=== PATIENT | female | born 1960 | race Caucasian/White ===

== ENCOUNTER 2017-04-26 17:13 | Inpatient (IN) | payer BC, OTHER ==
[~2017-04-26] VITALS: Ht 162.6 cm; Wt 65.2 kg
[2017-04-26] VITALS (9 sets, daily range): BP systolic 155–199; BP diastolic 77–103; PULSE 73–86; RESP 18–20; TEMP 96–97.6; O2SAT 94–98
[~2017-04-26 17:13] MED LIST: ASPI81 PO; ATOR10 PO; LANTUSP SQ; LOSA50 PO; METF-324 PO; METO25 PO; TICA90 PO
[2017-04-26] MEDS ORDERED: SODIUM CHLORIDE 0.9% FLUSH 10 ML FLUSH IVF PRN (17:30)
[2017-04-26] MEDS ORDERED: SODIUM CHLOR 0.9% 1000 ML INJ 1,000 ML IV ONE (17:30)
--- NOTE | 2017-04-26 17:38 | PD ---
HPI Chief Complaint: double vision Time Seen by Provider: 17:23 Travel History International Travel<30 days: No Contact w/Intl Traveler<30days: No History of Present Illness HPI Patient is a 57-year-old female with history of coronary artery disease, hypertension, hyperlipidemia, hx of left sided kidney cancer with partial resection, insulin-dependent diabetes with history of cardiac stent x 1 presents to ER with c/o of dizzyness. Patient reports that around 1:30 PM this afternoon, she was at her desk at home and began to have double vision. She reports that if she closes her right eye, she sees normally and her left eye, reports that if she closed her left eye, she sees normally in her right eye. Denies any pain to eyes. Patient reports that this has never happened to her in the past, denies any trauma to head/neck. Denies fall. Reports mild nausea with no vomiting. Denies chest pain/sob. Denies fever/chills. Denies cough/ congestion PFSH Past Medical History Arthritis: No Asthma: No Autoimmune Disease: No Blood Disorders: No Anxiety: Yes Heart Rhythm Problems: No Cancer: Yes (LEFT KIDNEY) Cardiovascular Problems: No High Cholesterol: Yes Chemotherapy: No Congestive Heart Failure: No COPD: No Cerebrovascular Accident: Yes (hospitalized 09/02 for tia vs migraine) Diabetes: Yes Diminished Hearing: No Endocrine: No GERD: No Genitourinary: No Headaches: Yes Hepatitis: No Hiatal Hernia: No Hypertension: Yes Immune Disorder: No Kidney Stones: No Musculoskeletal: No Neurologic: No Psychiatric: No Reproductive: No Respiratory: Yes (pneumonia) Migraines: No Myocardial Infarction: No Pneumonia: Yes Radiation Therapy: No Renal Failure: No Seizures: No Sleep Apnea: No Thyroid Disease: No Ulcer: No Past Surgical History Abdominal Surgery: Yes AICD: No Appendectomy: No Cardiac Surgery: No Section: Yes (1991) Cholecystectomy: Yes Ear Surgery: No Endocrine Surgery: No Eye Surgery: No Genitourinary Surgery: Yes (LEFT PARTIAL NEPHRECTOMY) Gynecologic Surgery: Yes Oral Surgery: No Pacemaker: No Thoracic Surgery: No Other Surgery: Yes Social History Alcohol Use: No Tobacco Use: Yes (.) Substance Use: No Allergies-Medications (Allergen,Severity, Reaction): Coded Allergies: Dilaudid (Unverified Allergy, Severe, RESPIRATORY DISTRESS, 04/26/17) Reported Meds & Prescriptions Reported Meds & Active Scripts Active Reported Aspirin 81 Mg Chew 81 Mg CHEW DAILY Losartan (Losartan Potassium) 100 Mg Tab 100 Mg PO DAILY Metoprolol Tartrate 25 Mg Tab 25 Mg PO BID Metformin (Metformin HCl) 500 Mg Tab 500 Mg PO DAILY With a meal Lantus Inj (Insulin Glargine) 1,000 Unit/10 Ml Vial 26 Units SQ HS Review of Systems General / Constitutional: No: Fever Eyes: No: Visual changes HENT: No: Headaches Cardiovascular: No: Chest Pain or Discomfort, Palpitations, Irregular Rhythm, Tachycardia Respiratory: No: Shortness of Breath Gastrointestinal: No: Abdominal Pain Genitourinary: No: Dysuria Musculoskeletal: No: Pain Skin: No Rash Neurologic: Positive: Headache, Other (double vision), No: Weakness Psychiatric: No: Depression Endocrine: No: Polydipsia Hematologic/Lymphatic: No: Easy Bruising Physical Exam Narrative GENERAL: NAD SKIN: Focused skin assessment warm/dry. HEAD: Atraumatic. Normocephalic. EYES: Pupils equal and round. No scleral icterus. No injection or drainage. ENT: No nasal bleeding or discharge. Mucous membranes pink and moist. NECK: Trachea midline. No JVD. CARDIOVASCULAR: Regular rate and rhythm. No murmur appreciated. RESPIRATORY: No accessory muscle use. Clear to auscultation. Breath sounds equal bilaterally. GASTROINTESTINAL: Abdomen soft, non-tender, nondistended. Hepatic and splenic margins not palpable. MUSCULOSKELETAL: No obvious deformities. No clubbing. No cyanosis. No edema. NEUROLOGICAL: Awake and alert. No obvious cranial nerve deficits. Motor grossly within normal limits. Normal speech. CN 2-12 grossly intact with no neurological deficits PSYCHIATRIC: Appropriate mood and affect; insight and judgment normal. Data Data Last Documented VS Vital Signs Date Time Temp Pulse Resp B/P Pulse Ox O2 Delivery O2 Flow Rate FiO2 04/26/17 17:20 97.6 79 18 192/95 94 04/26/17 17:15 Room Air Orders Complete Blood Count With Diff (04/26/17 17:30) Comprehensive Metabolic Panel (04/26/17 17:30) Prothrombin Time / Inr (Pt) (04/26/17 17:30) Act Partial Throm Time (Ptt) (04/26/17 17:30) Ct Brain W/O Iv Contrast(Rout) (04/26/17 17:30) Ecg Monitoring (04/26/17 17:30) Iv Access Insert/Monitor (04/26/17 17:30) Oximetry (04/26/17 17:30) Sodium Chloride 0.9% Flush (Ns Flush) (04/26/17 17:30) Sodium Chlor 0.9% 1000 Ml Inj (Ns 1000 M (04/26/17 17:30) Hydralazine Inj (Apresoline Inj) (04/26/17 18:30) Electrocardiogram (04/26/17 ) Aspirin Chew (Aspirin Chew) (04/27/17 09:00) Losartan (Cozaar) (04/27/17 09:00) Metoprolol Tartrate (Lopressor) (04/26/17 21:00) Place In Observation (04/26/17 ) Vital Signs (Adult) Q4H (04/26/17 18:39) Neuro Checks Q4H (04/26/17 18:39) Activity Oob With Assistance (04/26/17 18:39) Bedside Glucose ERNIE.AC&HS (04/26/17 18:39) Diet 1800 Ada Cons Carb (04/26/17 Dinner) Sodium Chlor 0.9% 1000 Ml Inj (Ns 1000 M (04/26/17 18:39) Sodium Chloride 0.9% Flush (Ns Flush) (04/26/17 18:45) Sodium Chloride 0.9% Flush (Ns Flush) (04/26/17 21:00) Acetaminophen (Tylenol) (04/26/17 18:45) Comprehensive Metabolic Panel (04/27/17 06:00) Complete Blood Count With Diff (04/27/17 06:00) Case Management Consult (04/26/17 18:39) Scd Bilateral/Knee High ERNIE.BID (04/26/17 18:39) Idris Bilateral/Knee High ERNIE.QSHIFT (04/26/17 18:39) Acetaminophen (Tylenol) (04/26/17 18:45) Naloxone Inj (Narcan Inj) (04/26/17 18:45) Docusate Sodium-Senna (Mable-Colace) (04/26/17 21:00) Insulin Aspart Supplemtl Scale (Novolog (04/26/17 21:00) Admit Order (Ed Use Only) (04/26/17 18:48) Aspirin Chew (Aspirin Chew) (04/26/17 19:00) Labs Laboratory Tests Test 04/26/17 17:47 White Blood Count 9.1 TH/MM3 Red Blood Count 5.28 MIL/MM3 Hemoglobin 15.2 GM/DL Hematocrit 45.3 % Mean Corpuscular Volume 85.8 FL Mean Corpuscular Hemoglobin 28.9 PG Mean Corpuscular Hemoglobin 33.7 % Concent Red Cell Distribution Width 13.7 % Platelet Count 206 TH/MM3 Mean Platelet Volume 10.1 FL Neutrophils (%) (Auto) 59.2 % Lymphocytes (%) (Auto) 31.7 % Monocytes (%) (Auto) 6.4 % Eosinophils (%) (Auto) 1.9 % Basophils (%) (Auto) 0.8 % Neutrophils # (Auto) 5.2 TH/MM3 Lymphocytes # (Auto) 2.9 TH/MM3 Monocytes # (Auto) 0.6 TH/MM3 Eosinophils # (Auto) 0.2 TH/MM3 Basophils # (Auto) 0.1 TH/MM3 CBC Comment DIFF FINAL Differential Comment Prothrombin Time 10.0 SEC Prothromb Time International 0.9 RATIO Ratio Activated Partial 27.8 SEC Thromboplast Time Sodium Level 143 MEQ/L Potassium Level 3.9 MEQ/L Chloride Level 110 MEQ/L Carbon Dioxide Level 25.7 MEQ/L Anion Gap 7 MEQ/L Blood Urea Nitrogen 13 MG/DL Creatinine 0.44 MG/DL Estimat Glomerular Filtration 147 ML/MIN Rate Random Glucose 149 MG/DL Calcium Level 8.5 MG/DL Total Bilirubin 0.3 MG/DL Aspartate Amino Transf 18 U/L (AST/SGOT) Alanine Aminotransferase 19 U/L (ALT/SGPT) Alkaline Phosphatase 95 U/L Total Protein 6.6 GM/DL Albumin 2.7 GM/DL MDM Medical Decision Making Medical Screen Exam Complete: Yes Emergency Medical Condition: Yes Interpretation(s) EKG at 1842: NSR at 67bpm qt/qtc: 410/426, no acute st or t wave changes Vital Signs Date Time Temp Pulse Resp B/P Pulse Ox O2 Delivery O2 Flow Rate FiO2 04/26/17 17:20 97.6 79 18 192/95 94 04/26/17 17:15 98 Room Air Laboratory Tests Test 04/26/17 17:47 White Blood Count 9.1 TH/MM3 (4.0-11.0) Red Blood Count 5.28 MIL/MM3 (4.00-5.30) Hemoglobin 15.2 GM/DL (11.6-15.3) Hematocrit 45.3 % (35.0-46.0) Mean Corpuscular Volume 85.8 FL (80.0-100.0) Mean Corpuscular Hemoglobin 28.9 PG (27.0-34.0) Mean Corpuscular Hemoglobin 33.7 % Concent (32.0-36.0) Red Cell Distribution Width 13.7 % (11.6-17.2) Platelet Count 206 TH/MM3 (150-450) Mean Platelet Volume 10.1 FL (7.0-11.0) Neutrophils (%) (Auto) 59.2 % (16.0-70.0) Lymphocytes (%) (Auto) 31.7 % (9.0-44.0) Monocytes (%) (Auto) 6.4 % (0.0-8.0) Eosinophils (%) (Auto) 1.9 % (0.0-4.0) Basophils (%) (Auto) 0.8 % (0.0-2.0) Neutrophils # (Auto) 5.2 TH/MM3 (1.8-7.7) Lymphocytes # (Auto) 2.9 TH/MM3 (1.0-4.8) Monocytes # (Auto) 0.6 TH/MM3 (0-0.9) Eosinophils # (Auto) 0.2 TH/MM3 (0-0.4) Basophils # (Auto) 0.1 TH/MM3 (0-0.2) CBC Comment DIFF FINAL Differential Comment Prothrombin Time 10.0 SEC (9.8-11.6) Prothromb Time International 0.9 RATIO Ratio Activated Partial 27.8 SEC Thromboplast Time (24.3-30.1) Sodium Level 143 MEQ/L (136-145) Potassium Level 3.9 MEQ/L (3.5-5.1) Chloride Level 110 MEQ/L (98-107) Carbon Dioxide Level 25.7 MEQ/L (21.0-32.0) Anion Gap 7 MEQ/L (5-15) Blood Urea Nitrogen 13 MG/DL (7-18) Creatinine 0.44 MG/DL (0.50-1.00) Estimat Glomerular Filtration 147 ML/MIN Rate (>89) Random Glucose 149 MG/DL (74-106) Calcium Level 8.5 MG/DL (8.5-10.1) Total Bilirubin 0.3 MG/DL (0.2-1.0) Aspartate Amino Transf 18 U/L (15-37) (AST/SGOT) Alanine Aminotransferase 19 U/L (10-53) (ALT/SGPT) Alkaline Phosphatase 95 U/L (45-117) Total Protein 6.6 GM/DL (6.4-8.2) Albumin 2.7 GM/DL (3.4-5.0) Last Impressions Head CT 04/26/17 1730 Signed Impressions: Service Date/Time: Wednesday, April 26, 2017 17:54 - CONCLUSION: Negative noncontrast CT brain. Jeferson Thorne MD Differential Diagnosis Differential includes CVA, migraine, accelerated hypertension, electrolyte abnormality, neurogenic lesion, neuromuscular transmission defect, myopathy, mechanical restriction in the orbit, internuclear ophthalmoplegia, hyperglycemia with cranial nerve deficits Narrative Course Patient is a 57-year-old female who presents to emergency room with complaints of diplopia. Symptoms began around 1:30 PM this afternoon and has been persistent. Patient with benign neuro exam at this time, and obtain CT head, lab work, EKG. Vital Signs Date Time Temp Pulse Resp B/P Pulse Ox O2 Delivery O2 Flow Rate FiO2 04/26/17 17:20 97.6 79 18 192/95 94 04/26/17 17:15 98 Room Air Last Impressions Head CT 04/26/170 Signed Impressions: Service Date/Time: Wednesday, April 26, 2017 17:54 - CONCLUSION: Negative noncontrast CT brain. Jeferson Thorne MD BP elevated, will treat with dose of hydralazine. CT of head/lab work benign, patient will require admission to hospital for further workup of diplopia and for better BP management as bp 192/95 and repeat 185/105. Case reviewed with Dr. Nair who accepts pt to service Diagnosis Primary Impression: Diplopia Additional Impression: Accelerated hypertension Admitting Information Admitting Physician Requests: Observation Zaria Garcia DO Apr 26, 2017 17:38
[2017-04-26 17:54] LABS: AUTOMATED NEUTROPHIL # 5.2 TH/MM3 (1.8-7.7); BASOPHIL # 0.1 TH/MM3 (0-0.2); BASOPHIL % 0.8 % (0.0-2.0); EOSINOPHIL # 0.2 TH/MM3 (0-0.4); EOSINOPHIL % 1.9 % (0.0-4.0); HEMATOCRIT 45.3 % (35.0-46.0); HEMO FLAGS DIFF FINAL; LYMPH % 31.7 % (9.0-44.0); LYMPHOCYTE # 2.9 TH/MM3 (1.0-4.8); MEAN CELL VOLUME 85.8 FL (80.0-100.0); MEAN CORPUSCULAR HEMOGLOBIN 28.9 PG (27.0-34.0); MEAN CORPUSCULAR HGB CONC 33.7 % (32.0-36.0); MONO % 6.4 % (0.0-8.0); NEUT % 59.2 % (16.0-70.0); PLATELET COUNT 206 TH/MM3 (150-450); RED BLOOD COUNT 5.28 MIL/MM3 (4.00-5.30); RED CELL DISTRIBUTION WIDTH 13.7 % (11.6-17.2); WHITE BLOOD COUNT 9.1 TH/MM3 (4.0-11.0)
[2017-04-26 18:03] LABS: CHLORIDE 110 MEQ/L (98-107); POTASSIUM 3.9 MEQ/L (3.5-5.1); SODIUM (NA) 143 MEQ/L (136-145)
[2017-04-26 18:06] LABS: ANION GAP 7 MEQ/L (5-15); BICARBONATE 25.7 MEQ/L (21.0-32.0); BLOOD UREA NITROGEN 13 MG/DL (7-18)
[2017-04-26 18:08] LABS: APTT (PATIENT) 27.8 SEC (24.3-30.1); INTERNATIONAL NORMALIZED RATIO 0.9 RATIO
[2017-04-26 18:09] LABS: ALT (GPT) 19 U/L (10-53); AST (GOT) 18 U/L (15-37); GLOMERULAR FILTRATION RATE 147 ML/MIN (>89)
[2017-04-26 18:11] LABS: TOTAL BILIRUBIN ADULT 0.3 MG/DL (0.2-1.0)
[2017-04-26 18:12] LABS: ALKALINE PHOSPHATASE 95 U/L (45-117)
--- NOTE | 2017-04-26 18:13 | RADRPT ---
EXAM DATE/TIME: 04/26/2017 17:54 [facility] COMPARISON: No previous studies available for comparison. INDICATIONS : Dizziness. Visual disturbance. RADIATION DOSE: 58.62 CTDIvol (mGy) MEDICAL HISTORY : Hypertension. Diabetes. SURGICAL HISTORY : Cholecystectomy. section.Left partial nephrectomy ENCOUNTER: Initial ACUITY: 1 day PAIN SCALE: 0/10 LOCATION: cranial TECHNIQUE: Multiple contiguous axial images were obtained of the head. Using automated exposure control and adj ustment of the mA and/or kV according to patient size, radiation dose was kept as low as reasonably a chievable to obtain optimal diagnostic quality images. DICOM format image data is available electro nically for review and comparison. FINDINGS: CEREBRUM: The ventricles are normal for age. No evidence of midline shift, mass lesion, hemorrhage or acute in farction. No extra-axial fluid collections are seen. POSTERIOR FOSSA: The cerebellum and brainstem are intact. The 4th ventricle is midline. The cerebellopontine angle i s unremarkable. EXTRACRANIAL: The visualized portion of the orbits is intact. SKULL: The calvaria is intact. No evidence of skull fracture. CONCLUSION: Negative noncontrast CT brain. Jeferson Thorne MD on April 26, 2017 at 18:11 Board Certified Radiologist. This report was verified electronically.
[2017-04-26] MEDS ORDERED: LANTUS2P SQ (18:22)
[2017-04-26] MEDS ORDERED: ASPI81CH CHEW (18:22)
[2017-04-26] MEDS ORDERED: METF500T PO (18:22)
[2017-04-26] MEDS ORDERED: METO25TA3 PO (18:22)
[2017-04-26] MEDS ORDERED: LOSA100T PO (18:22)
[2017-04-26] MEDS ORDERED: hydrALAZINE HCL 20 MG/ML VIAL IV PUSH ONE (18:30)
[2017-04-26] MEDS ORDERED: SODIUM CHLOR 0.9% 1000 ML INJ 1,000 ML IV SCH (18:39)
[2017-04-26] MEDS ORDERED: SODIUM CHLORIDE 0.9% FLUSH 10 ML FLUSH IV FLUSH PRN (18:45)
[2017-04-26] MEDS ORDERED: ACETAMINOPHEN 325 MG TAB PO PRN (18:45)
[2017-04-26] MEDS ORDERED: NALOXONE HCL 0.4 MG/ML AMP IV PRN (18:45)
[2017-04-26] MEDS ORDERED: ASPIRIN 81 MG CHEW TAB CHEW ONE (19:00)
[2017-04-26] MEDS: SODIUM CHLORIDE 0.9% FLUSH 10 ML FLUSH IV FLUSH SCH (20:52)
[2017-04-26] MEDS: METOPROLOL TARTRATE 25 MG TAB PO SCH (20:59)
[2017-04-26] MEDS: DOCUSATE SODIUM 50 MG/SENNA 8.6 MG TAB PO SCH (21:00)
[2017-04-26] MEDS: INSULIN ASPART SUPPLEMENTAL SCALE SQ SCH (21:08)
[2017-04-26] MEDS: ACETAMINOPHEN 325 MG TAB PO PRN (22:00)
[2017-04-27] VITALS: BP 168/78; PULSE 75; RESP 20; TEMP 97; O2SAT 94
[2017-04-27 04:00] VITALS: BP 169/63; PULSE 64; RESP 20; TEMP 96.8; O2SAT 93
[2017-04-27] MEDS: INSULIN ASPART SUPPLEMENTAL SCALE SQ SCH ×5 (06:09→21:52)
[2017-04-27 06:20] LABS: AUTOMATED NEUTROPHIL # 4.9 TH/MM3 (1.8-7.7); BASOPHIL % 0.2 % (0.0-2.0); EOSINOPHIL # 0.2 TH/MM3 (0-0.4); EOSINOPHIL % 1.8 % (0.0-4.0); HEMO FLAGS DIFF FINAL; LYMPH % 32.6 % (9.0-44.0); LYMPHOCYTE # 2.7 TH/MM3 (1.0-4.8); MEAN CELL VOLUME 87.4 FL (80.0-100.0); MEAN CORPUSCULAR HEMOGLOBIN 28.4 PG (27.0-34.0); MEAN CORPUSCULAR HGB CONC 32.5 % (32.0-36.0); MONO % 7.4 % (0.0-8.0); PLATELET COUNT 193 TH/MM3 (150-450); RED BLOOD COUNT 4.92 MIL/MM3 (4.00-5.30); RED CELL DISTRIBUTION WIDTH 13.8 % (11.6-17.2); WHITE BLOOD COUNT 8.4 TH/MM3 (4.0-11.0)
[2017-04-27 06:21] LABS: CHLORIDE 112 MEQ/L (98-107); POTASSIUM 3.5 MEQ/L (3.5-5.1); SODIUM (NA) 145 MEQ/L (136-145)
[2017-04-27 06:30] LABS: ANION GAP 7 MEQ/L (5-15); BICARBONATE 26.1 MEQ/L (21.0-32.0); BLOOD UREA NITROGEN 8 MG/DL (7-18)
[2017-04-27 06:33] LABS: ALT (GPT) 19 U/L (10-53); AST (GOT) 14 U/L (15-37); GLOMERULAR FILTRATION RATE 169 ML/MIN (>89)
[2017-04-27 06:34] LABS: TOTAL BILIRUBIN ADULT 0.4 MG/DL (0.2-1.0)
[2017-04-27 06:35] LABS: ALKALINE PHOSPHATASE 81 U/L (45-117)
[2017-04-27] MEDS: SODIUM CHLORIDE 0.9% FLUSH 10 ML FLUSH IV FLUSH SCH ×2 (07:41→21:41)
[2017-04-27 08:00] VITALS: BP 161/84; PULSE 72; RESP 18; TEMP 97.8; O2SAT 95
[2017-04-27] MEDS: METOPROLOL TARTRATE 25 MG TAB PO SCH ×2 (08:58→21:41)
[2017-04-27] MEDS: LOSARTAN 50 MG TAB PO SCH (08:58)
[2017-04-27] MEDS: ASPIRIN 81 MG CHEW TAB CHEW SCH (08:59)
[2017-04-27] MEDS: DOCUSATE SODIUM 50 MG/SENNA 8.6 MG TAB PO SCH ×2 (08:59→21:41)
--- NOTE | 2017-04-27 09:28 | EKG ---
Date Performed: 04/26/2017 Time Performed: 18:42:32 PTAGE: 57 years EKG: Sinus rhythm NORMAL ECG PREVIOUS TRACING : 11/11/2014 05.03 DOCTOR: Masood Lo Interpretating Date/Time 04/27/2017 09:28:14
--- NOTE | 2017-04-27 11:13 | HHI.HP ---
[facility] Unknown Admission Diagnosis Diplopia, accelerated hypertension Diagnoses: Chief Complaint: Diplopia and headache Travel History International Travel<30 Days: No Contact w/Intl Traveler <30 Da: No Traveled to Known Affected Are: No History of Present Illness Patient is a 57-year-old female with a known history of hypertension who had 2 weeks of increasing headache and increased blood pressure. Suddenly on the day of admission she had new onset of diplopia. She was dizzy. The patient says that she felt her eye was hurting and not able to rotate normally. She has reports normal vision for her but to inability to focus due to the double vision. There is no trauma. Patient was admitted through the emergency room for further evaluation and initial CT on my review is unremarkable. She takes her medications for diabetes and hypertension without difficulty. Initial EKG was unremarkable on my review. Patient admitted for further evaluation for possible CVA Review of Systems Constitutional: DENIES: Diaphoretic episodes, Fatigue, Fever, Weight gain, Weight loss, Chills, Dizziness, Change in appetite, Night Sweats Eyes: COMPLAINS OF: Diplopia, DENIES: Blurred vision, Eye inflammation, Eye pain, Vision loss, Photosensitivity, Double Vision Ears, nose, mouth, throat: DENIES: Tinnitus, Hearing loss, Vertigo, Nasal discharge, Oral lesions, Throat pain, Hoarseness, Ear Pain, Running Nose, Epistaxis, Sinus Pain, Toothache, Odynophagia Respiratory: DENIES: Apneas, Cough, Snoring, Wheezing, Hemoptysis, Sputum production, Shortness of breath Cardiovascular: DENIES: Chest pain, Palpitations, Syncope, Dyspnea on Exertion , PND, Lower Extremity Edema, Orthopnea, Claudication Gastrointestinal: DENIES: Abdominal pain, Black stools, Bloody stools, Constipation, Diarrhea, Nausea, Vomiting, Difficulty Swallowing, Anorexia Genitourinary: DENIES: Abnormal vaginal bleeding, Dysmenorrhea, Dyspareunia, Sexual dysfunction, Urinary frequency, Urinary incontinence, Urgency, Hematuria , Dysuria, Nocturia, Vaginal discharge Musculoskeletal: DENIES: Joint pain, Muscle aches, Stiffness, Joint Swelling, Back pain, Neck pain Integumentary: DENIES: Abnormal pigmentation, Pruritus, Rash, Nail changes, Breast masses, Breast skin changes, Nipple discharge Hematologic/lymphatic: DENIES: Bruising, Lymphadenopathy Immunologic/allergic: DENIES: Eczema, Urticaria Neurologic: COMPLAINS OF: Headache, DENIES: Abnormal gait, Localized weakness , Paresthesias, Seizures, Speech Problems, Tremor, Poor Balance Past Family Social History Past Medical History Diabetes Coronary artery disease Hypertension Kidney cancer Past Surgical History Cardiac stenting Partial nephrectomy, left Cholecystectomy, Reported Medications Reviewed in the medical record, nothing new Allergies: Coded Allergies: Dilaudid (Unverified Allergy, Severe, RESPIRATORY DISTRESS, 04/26/17) Active Ordered Medications Reviewed in the medical record Family History Mother had COPD and in her 70s, father had a heart attack in his 70s and , no siblings Social History Patient smokes a half a pack a day, social alcohol, 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 Physical Exam Vital Signs Vital Signs Date Time Temp Pulse Resp B/P Pulse Ox O2 Delivery O2 Flow Rate FiO2 04/27/17 08:00 97.8 72 18 161/84 95 04/27/17 04:00 96.8 64 20 169/63 93 04/27/17 00:00 97.0 75 20 168/78 94 04/26/17 21:30 77 18 96 04/26/17 21:30 96.0 75 20 172/85 95 04/26/17 21:27 77 18 178/78 96 Room Air 04/26/17 20:54 77 18 188/83 97 Room Air 04/26/17 19:53 79 18 179/77 94 Room Air 04/26/17 19:37 86 20 199/90 96 Room Air 04/26/17 18:54 73 18 155/80 96 Room Air 04/26/17 18:45 183/103 04/26/17 17:20 97.6 79 18 192/95 94 04/26/17 17:15 98 Room Air Physical Exam GENERAL: This is a well-nourished, well-developed patient, in no apparent distress. SKIN: No rashes, ecchymoses or lesions. Cool and dry. HEAD: Atraumatic. Normocephalic. No temporal or scalp tenderness. EYES: Pupils equal round and reactive. Left eye with inability to rotate medially and is somewhat elevated. No scleral icterus. No injection or drainage. ENT: Nose without bleeding, purulent drainage or septal hematoma. Throat without erythema, tonsillar hypertrophy or exudate. Uvula midline. Airway patent. NECK: Trachea midline. No JVD or lymphadenopathy. Supple, nontender, no meningeal signs. CARDIOVASCULAR: Regular rate and rhythm without murmurs, gallops, or rubs. RESPIRATORY: Clear to auscultation. Breath sounds equal bilaterally. No wheezes , rales, or rhonchi. GASTROINTESTINAL: Abdomen soft, non-tender, nondistended. No hepato-splenomegaly , or palpable masses. No guarding. MUSCULOSKELETAL: Extremities without clubbing, cyanosis, or edema. No joint tenderness, effusion, or edema noted. No calf tenderness. Negative Homans sign bilaterally. NEUROLOGICAL: Awake and alert. Cranial nerves II through XII intact. Motor and sensory grossly within normal limits. Five out of 5 muscle strength in all muscle groups. Normal speech. Laboratory Laboratory Tests Test 04/26/17 04/27/17 17:47 04:35 White Blood Count 9.1 8.4 Red Blood Count 5.28 4.92 Hemoglobin 15.2 14.0 Hematocrit 45.3 43.0 Mean Corpuscular Volume 85.8 87.4 Mean Corpuscular Hemoglobin 28.9 28.4 Mean Corpuscular Hemoglobin 33.7 32.5 Concent Red Cell Distribution Width 13.7 13.8 Platelet Count 206 193 Mean Platelet Volume 10.1 11.7 Neutrophils (%) (Auto) 59.2 58.0 Lymphocytes (%) (Auto) 31.7 32.6 Monocytes (%) (Auto) 6.4 7.4 Eosinophils (%) (Auto) 1.9 1.8 Basophils (%) (Auto) 0.8 0.2 Neutrophils # (Auto) 5.2 4.9 Lymphocytes # (Auto) 2.9 2.7 Monocytes # (Auto) 0.6 0.6 Eosinophils # (Auto) 0.2 0.2 Basophils # (Auto) 0.1 0.0 CBC Comment DIFF FINAL DIFF FINAL Differential Comment Prothrombin Time 10.0 Prothromb Time International 0.9 Ratio Activated Partial 27.8 Thromboplast Time Sodium Level 143 145 Potassium Level 3.9 3.5 Chloride Level 110 112 Carbon Dioxide Level 25.7 26.1 Anion Gap 7 7 Blood Urea Nitrogen 13 8 Creatinine 0.44 0.39 Estimat Glomerular Filtration 147 169 Rate Random Glucose 149 204 Calcium Level 8.5 8.2 Total Bilirubin 0.3 0.4 Aspartate Amino Transf 18 14 (AST/SGOT) Alanine Aminotransferase 19 19 (ALT/SGPT) Alkaline Phosphatase 95 81 Total Protein 6.6 5.7 Albumin 2.7 2.4 Result Diagram: 04/27/175 04/27/17 0435 Imaging Last Impressions Head CT 04/26/17 1730 Signed Impressions: Service Date/Time: Wednesday, April 26, 2017 17:54 - CONCLUSION: Negative noncontrast CT brain. Jeferson Thorne MD Assessment and Plan Problem List: (1) Diplopia ICD Code: H53.2 Status: Acute Plan: Rule out stroke, MRI, MRA pending Neurology consult pending Continue neuro checks (2) Accelerated hypertension ICD Code: I10 Status: Acute Plan: Patient on losartan and metoprolol without recent changes, blood pressure was 192/95 on admission and appears to be improved. (3) DM (diabetes mellitus) ICD Code: E11.9 Status: Chronic Plan: Patient will continue with home medications, diabetic diet Controlled Assessment and Plan Plan of care to be determined by Hospital course Code Status Full code Monisha Childress MD Apr 27, 2017 11:13
[2017-04-27 12:00] VITALS: BP 162/90; PULSE 65; RESP 18; TEMP 98.8; O2SAT 94
[2017-04-27] MEDS ORDERED: LORazepam 2 MG/ML VIAL IV PUSH ONE (12:15)
[2017-04-27 16:00] VITALS: BP 158/84; PULSE 70; RESP 18; TEMP 98.5; O2SAT 95
[2017-04-27] MEDS ORDERED: GADODIAMIDE PF 287 MG/ML 20 ML VIAL (for RAD MRI) IV ONE (17:00)
--- NOTE | 2017-04-27 17:24 | RADRPT ---
EXAM DATE/TIME: 04/27/2017 15:05 [facility] COMPARISON: CT BRAIN W/O CONTRAST, April 26, 2017, 17:54. INDICATIONS : CVA. MEDICAL HISTORY : Hypertension. Myocardial infarction. kidney ca. SURGICAL HISTORY : Nephrectomy, left. Coronary artery stent. Cholecystectomy. ENCOUNTER: Initial ACUITY: 1 day PAIN SCORE: 0/10 LOCATION: head TECHNIQUE: Multiplanar, multisequence MRI of the brain was performed without contrast. FINDINGS: There is a small focus of restricted diffusion involving the left cerebral peduncle. Scattered areas of high flair signal involving the periventricular white matter of both cerebral hemispheres. No hemo rrhage. No mass. Normal flow-voids within the major intracranial vessels. Paranasal sinuses and masto id air cells are clear. CONCLUSION: 1. Small acute lacunar infarction involving the left cerebral peduncle. 2. Chronic small vessel ischemic change. Jeferson Finn Jr., MD on April 27, 2017 at 16:56 Board Certified Radiologist. This report was verified electronically.
--- NOTE | 2017-04-27 17:25 | RADRPT ---
EXAM DATE/TIME: 04/27/2017 15:05 [facility] COMPARISON: No previous studies available for comparison. INDICATIONS : CVA. MEDICAL HISTORY : Hypertension. Myocardial infarction. Left kidney ca. SURGICAL HISTORY : Cholecystectomy. Partial nephrectomy left. ENCOUNTER: Initial ACUITY: 2 day PAIN SCORE: LOCATION: head Please note a normal MRA of the brain does not entirely exclude the possibility of a small aneurysm, nor the possibility of distal intracranial vessel disease. TECHNIQUE: 3D time of flight MRA was performed. Source images, multiplanar STS MIP, and 3D volume MIP reconstru ctions were reviewed. FINDINGS: There is excellent visualization of the major intracranial arteries out to the second-order branch ve ssels. There is no evidence for aneurysm, vessel truncation or stenosis, and no evidence for vascula r malformation. CONCLUSION: Normal examination. Jeferson Finn Jr., MD on April 27, 2017 at 17:22 Board Certified Radiologist. This report was verified electronically.
--- NOTE | 2017-04-27 17:27 | RADRPT ---
EXAM DATE/TIME: 04/27/2017 15:05 [facility] COMPARISON: No previous studies available for comparison. INDICATIONS : Stroke. CONTRAST: 20 cc Omniscan (gadodiamide) IV MEDICAL HISTORY : Hypertension. Myocardial infarction. Kidney ca. SURGICAL HISTORY : Cholecystectomy. Left partial nephrectomy. ENCOUNTER: Initial ACUITY: 2 day PAIN SCORE: 0/10 LOCATION: neck Percent stenosis is calculated using the diameter of the stenotic region over the diameter of the nor mal distal internal carotid artery. TECHNIQUE: Bolus infused MRA of the extracranial circulation was performed using a neurovascular coil. Post pro cessing was performed including rotating subvolume maximum intensity projections of each carotid aida ry, rotating full volume maximum intensity projections of both carotid arteries, sagittal and coronal sliding thin slab reformations of each carotid artery, and left oblique sliding thin slab reformatio n through the aortic arch to include the origin of the arch branch vessels. FINDINGS: AORTIC ARCH: There is a three vessel origin of the great vessels from the aorta. No evidence of ostial narrowing. RIGHT CAROTID: The common carotid artery is intact. The carotid bulb has a normal configuration without ulceration or narrowing. The internal carotid artery lumen is smooth without stenosis. The external carotid ar gato is intact. LEFT CAROTID: The common carotid artery is intact. The carotid bulb has a normal configuration without ulceration or narrowing. The internal carotid artery lumen is smooth without stenosis. The external carotid ar gato is intact. VERTEBRALS: The vertebral arteries have a symmetric diameter. No stenotic lesions are seen. CONCLUSION: 1. Patent carotid arteries and vertebral arteries bilaterally. Jeferson Finn Jr., MD on April 27, 2017 at 17:23 Board Certified Radiologist. This report was verified electronically.
[2017-04-27] MEDS: CLOPIDOGREL 75 MG TAB PO SCH (17:55)
--- NOTE | 2017-04-27 18:22 | MB ---
cc: LAWRENCE CHRISTENSEN M.D. DATE OF CONSULTATION 04/27/17 REASON FOR CONSULTATION She is a [id number] seen for neurologic evaluation in regards to double vision. The patient developed double vision yesterday. Some associated dizziness and the patient has been having headaches for the past couple of weeks. She had a CT brain that was negative. She has a history of diabetes mellitus and cardiac stenting. History of kidney cancer with partial nephrectomy on the left. PHYSICAL EXAMINATION NEURO: On exam the patient was emotional but alert and oriented. Speech is mildly dysarthric. Ocular movements appeared to be full, no obvious ocular misalignment and she did not have any double vision during the exam. The pupils were equal and reactive. There was no facial weakness. Tongue is moving symmetrically. She raises arms and legs and I suspect there is some right upper extremity weakness including an arm drift and some minor difficulty with fine finger coordination. 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 The lower extremities are grossly symmetrical on the bedside exam. The reflexes were present but diminished, present at both ankles and plantar responses were flexor bilaterally. ASSESSMENT Acute lacunar left cerebral peduncle. The MRI confirms this. She has been on aspirin, I am going to add Plavix. She is likely going to improve. Her CBC was normal and there is some minor chemistry change including a blood sugar of 204 today and yesterday was 149. Will check lipid profile and she may need a statin. The goal would be to bring her LDL below 70, in case it is higher than this. Otherwise, PT, OT and speech. I should mention that she has had neck and head MRA studies which were unremarkable. I will request an echo if not done yet, EKG initially showed sinus rhythm. Thank you for asking us to assist in her care. I will follow her with you. Lawrence Christensen MD OFC/EO /5:42 PM /6:08 PM
[2017-04-27 20:00] VITALS: BP 158/72; PULSE 66; RESP 20; TEMP 97.7; O2SAT 93
[2017-04-28] VITALS: BP 150/81; PULSE 58; RESP 20; TEMP 96.5; O2SAT 94
[2017-04-28] MEDS: INSULIN ASPART SUPPLEMENTAL SCALE SQ SCH ×4 (07:00→21:13)
[2017-04-28] MEDS: SODIUM CHLORIDE 0.9% FLUSH 10 ML FLUSH IV FLUSH SCH ×2 (08:42→21:13)
[2017-04-28 08:48] VITALS: BP 137/69; PULSE 56; RESP 19; TEMP 98; O2SAT 93
[2017-04-28] MEDS: CLOPIDOGREL 75 MG TAB PO SCH (09:12)
[2017-04-28] MEDS: ASPIRIN 81 MG CHEW TAB CHEW SCH (09:12)
[2017-04-28] MEDS: LOSARTAN 50 MG TAB PO SCH (09:12)
[2017-04-28] MEDS: DOCUSATE SODIUM 50 MG/SENNA 8.6 MG TAB PO SCH ×2 (09:12→21:00)
[2017-04-28] MEDS: METOPROLOL TARTRATE 25 MG TAB PO SCH ×2 (09:12→21:02)
--- NOTE | 2017-04-28 12:53 | HHI.PR ---
Subjective Remarks Written by Dennys Chatterjee, acting as scribe for Dr. Dhaliwal on 04/28/17 at 12: 47. Patient seen and examined today by Dr. Dhaliwal. Patient still having blurred vision. States that she still has some mild ataxia. Denies any unilateral weakness. Denies any CP/SOB/N/V. She tells me that she is frustrated that "no one" has gone over what the diagnosis is. Objective Vitals Vital Signs Date Time Temp Pulse Resp B/P Pulse Ox O2 Delivery O2 Flow Rate FiO2 04/28/17 08:48 98.0 56 19 137/69 93 04/28/17 00:00 96.5 58 20 150/81 94 04/27/17 20:00 97.7 66 20 158/72 93 04/27/17 16:00 98.5 70 18 158/84 95 I/O 04/27/17 04/27/17 04/27/17 04/28/17 04/28/17 04/28/17 07:00 15:00 23:00 07:00 15:00 23:00 Intake Total 864 ml 1564 ml 60 ml 120 ml Output Total 400 ml Balance 864 ml 1564 ml -340 ml 120 ml Intake Oral 60 ml 750 ml 60 ml 120 ml IV Total 804 ml 814 ml Output Urine Total 400 ml # Voids 0 3 1 1 # Bowel Movements 0 0 0 Result Diagram: 04/27/17 0435 04/27/17 0435 Imaging Last Impressions Neck Magnetic Resonance Angiography 04/27/17 0000 Signed Impressions: Service Date/Time: Thursday, April 27, 2017 15:05 - CONCLUSION: 1. Patent carotid arteries and vertebral arteries bilaterally. Jeferson Finn Jr., MD Head Magnetic Resonance Angiography 04/27/17 0000 Signed Impressions: Service Date/Time: Thursday, April 27, 2017 15:05 - CONCLUSION: Normal examination. Jeferson Finn Jr., MD Brain MRI 04/27/17 0000 Signed Impressions: Service Date/Time: Thursday, April 27, 2017 15:05 - CONCLUSION: 1. Small acute lacunar infarction involving the left cerebral peduncle. 2. Chronic small vessel ischemic change. Jeferson Finn Jr., MD Head CT 04/26/17 5300 Signed Impressions: Service Date/Time: [place], April 26, 2017 17:54 - CONCLUSION: Negative noncontrast CT brain. Jeferson Thorne MD Objective Remarks GENERAL: Well-developed, well-nourished, in no acute distress. alert and orientated HEENT: Head is normocephalic Facial features are symmetric. Eyes: Extraocular muscles are intact. Conjunctivae were clear. She does keep one eye close when looking at me NECK: Trachea midline no deviation. No JVD, CARDIAC: Regular rhythm, regular rate. No murmurs LUNGS: Clear auscultation bilaterally. No wheeze. No use of accessory muscles on inspiration or expiration. ABDOMEN: Soft, nontender. Nondistended. EXTREMITIES: No edema, pulses are equal bilaterally. NEUROLOGY: Mood and affect appear appropriate. Moving all extremities, speech is clear Urinary Catheter: No Vascular Central Line Catheter: No A/P Assessment and Plan Acute lacunar infarct patient involving the left cerebral peduncle presenting with diplopia CT scan did not indicate acute abnormality MRI of the brain showed small acute lacunar infarct MRA of the neck and brain did not indicate any acute abnormality Awaiting echocardiogram Awaiting PT/OT/ST evaluations Neurology has evaluated patient and recommended addition of Plavix Continue aspirin/Plavix Discussed with her the MRI finding of her having a stroke. Notified her of her laboratory studies and plans for continued treatment. Notified her that she'll require further testing and therapy. Hyperlipidemia LDL 81 Patient already on atorvastatin 40 mg in outpatient setting, will increase to 80 mg Hypertension, was permissive due to stroke Metoprolol 25 mg twice daily Cozaar 100 mg daily Diabetes Accu-Cheks with sliding scale insulin DVT prevention Sequential compression devices This note was transcribed by vianney Chatterjee. I, Dr. Chely Dhaliwal personally performed the history, physical exam, and medical decision making; and confirmed the accuracy of the information in the transcribed note. Authenticated by Dr. Chely Dhaliwal on 04/28/17 at 12:47. Discharge Planning Discharge planning when workup complete, awaiting echocardiogram and therapy evaluations. Likely 2448 hours Dennys Chatterjee Apr 28, 2017 12:53 Chely Dhaliwal MD Apr 28, 2017 21:08
--- NOTE | 2017-04-28 12:58 | ECHRPT ---
Indication: stroke CONCLUSIONS Normal left ventricular size. Wall thickness is normal. The left ventricular systolic function is normal with an estimated ejection fraction in the range of 55-60%. No mitral valve regurgitation. There is mild tricuspid valve regurgitation. The pulmonary valve is not well visualized. BP: / HR: Rhythm: MEASUREMENTS (Male / Female) Normal Values Technical Quality:Good M-MODE Aortic Root Diameter MM 3.6 cm LA Systolic Diameter MM 2.9 cm LA Ao Ratio MM 0.8 AV Cusp Separation MM 2.0 cm DOPPLER Mitral E Point Velocity 61.7 cm/s Mitral A Point Velocity 78.0 cm/s Mitral E to A Ratio 0.8 LV E' Lateral Velocity 9.9 cm/s Mitral E to LV E' Lateral Ratio 6.2 LV E' Septal Velocity 5.4 cm/s Mitral E to LV E' Septal Ratio 11.5 FINDINGS LEFT VENTRICLE Normal left ventricular size. Wall thickness is normal. The left ventricular systolic function is normal with an estimated ejection fraction in the range of 55-60%. RIGHT VENTRICLE Normal right ventricular size and systolic function. LEFT ATRIUM The left atrial size is normal. RIGHT ATRIUM The right atrial size is normal. ATRIAL SEPTUM Normal atrial septal thickness without atrial level shunting by limited color doppler interrogation. AORTA The aortic root and proximal ascending aorta are normal in size on limited imaging. MITRAL VALVE Structurally normal mitral valve. No mitral valve regurgitation. AORTIC VALVE Trileaflet aortic valve. No aortic valve stenosis or regurgitation. TRICUSPID VALVE Structurally normal tricuspid valve. There is mild tricuspid valve regurgitation. PULMONARY VALVE The pulmonary valve is not well visualized. VESSELS The inferior vena cava is normal in size. PERICARDIUM No pericardial effusion. Masood Lo MD, FACC (Electronically Signed) Final Date:28 April 2017 12:57
[2017-04-28 13:19] VITALS: BP 168/87; PULSE 59; RESP 19; TEMP 98; O2SAT 98
[2017-04-28 16:41] VITALS: BP 148/75; PULSE 62; RESP 19; TEMP 98.4; O2SAT 95
[2017-04-28 20:00] VITALS: BP 156/83; PULSE 59; RESP 18; TEMP 98.8; O2SAT 95
[2017-04-28] MEDS ORDERED: ATORVASTATIN 20 MG TAB PO SCH (21:00)
[2017-04-29] VITALS: BP 154/79; PULSE 61; RESP 18; TEMP 97.7; O2SAT 95
[2017-04-29 04:00] VITALS: BP 166/81; PULSE 75; RESP 18; TEMP 98.2; O2SAT 93
[2017-04-29] MEDS ORDERED: WALKER WHEELS/F1 MIS (05:50)
[2017-04-29] MEDS: ACETAMINOPHEN 325 MG TAB PO PRN (06:41)
[2017-04-29] MEDS: ASPIRIN 81 MG CHEW TAB CHEW SCH (08:32)
[2017-04-29] MEDS: CLOPIDOGREL 75 MG TAB PO SCH (08:32)
[2017-04-29] MEDS: METOPROLOL TARTRATE 25 MG TAB PO SCH (08:32)
[2017-04-29] MEDS: DOCUSATE SODIUM 50 MG/SENNA 8.6 MG TAB PO SCH (08:32)
[2017-04-29] MEDS: LOSARTAN 50 MG TAB PO SCH (08:32)
[2017-04-29] MEDS: SODIUM CHLORIDE 0.9% FLUSH 10 ML FLUSH IV FLUSH SCH (08:38)
[2017-04-29] MEDS: INSULIN ASPART SUPPLEMENTAL SCALE SQ SCH (08:38)
[2017-04-29 09:14] VITALS: BP 146/97; PULSE 65; RESP 19; TEMP 97.1; O2SAT 94
[2017-04-29] MEDS ORDERED: amLODIPine BESYLATE 5 MG TAB PO SCH (09:45)
--- NOTE | 2017-04-29 11:23 | HHI.PR ---
Subjective Remarks Written by Oumou Avina, acting as scribe for Dr. Dhaliwal on 04/29/17 at 11:06. Follow-up visit acute lacunar infarct, HTN, diplopia. Patient seen and examined today. Daughter at the bedside. Discuss and explained with patient plans and further recommendations with her recent infarct. Discuss home health care versus outpatient rehabilitation. Patient is concerned that nobody has seen her or explained to her plan of action. Explained and discussed with patient and daughter that medical team did see the patient yesterday and discussed the need for Plavix and aspirin use be continued as well as to continue PT, ST, OT recommendations. Patient continues to worry about her diplopia, complains of continuous diplopia and visual problems and when she is going to get better. Reassured patient and discussed that being back to her functional status will be depending on individual patient. She will need to continue with PT and OT. Patient states that she has all been arranged by her company but when approached if she needed a referral she states that she would need a referral. Awaiting for OT recommendation. Denies pain and discomfort. Denies SOB/ dyspnea. Denies chest pain, palpitations, headaches, dizziness. Denies fevers, chills, n/v/d. Denies dysuria. Objective Vitals Vital Signs Date Time Temp Pulse Resp B/P Pulse Ox O2 Delivery O2 Flow Rate FiO2 04/29/17 09:14 97.1 65 19 146/97 94 04/29/17 04:00 98.2 75 18 166/81 93 04/29/17 00:00 97.7 61 18 154/79 95 04/28/17 20:00 98.8 59 18 156/83 95 04/28/17 16:41 98.4 62 19 148/75 95 04/28/17 13:19 98.0 59 19 168/87 98 I/O 04/28/17 04/28/17 04/28/17 04/29/17 04/29/17 04/29/17 07:00 15:00 23:00 07:00 15:00 23:00 Intake Total 120 ml 1430 ml 240 ml Balance 120 ml 1430 ml 240 ml Intake Oral 120 ml 1430 ml 240 ml # Voids 1 6 1 # Bowel Movements 1 Result Diagram: 04/27/17 0435 04/27/17 0435 Imaging Last Impressions Neck Magnetic Resonance Angiography 04/27/17 0000 Signed Impressions: Service Date/Time: Thursday, April 27, 2017 15:05 - CONCLUSION: 1. Patent carotid arteries and vertebral arteries bilaterally. Jeferson Finn Jr., MD Head Magnetic Resonance Angiography 04/27/17 0000 Signed Impressions: Service Date/Time: Thursday, April 27, 2017 15:05 - CONCLUSION: Normal examination. Jeferson Finn Jr., MD Brain MRI 04/27/17 0000 Signed Impressions: Service Date/Time: Thursday, April 27, 2017 15:05 - CONCLUSION: 1. Small acute lacunar infarction involving the left cerebral peduncle. 2. Chronic small vessel ischemic change. Jeferson Finn Jr., MD Head CT 04/26/17 1730 Signed Impressions: Service Date/Time: Wednesday, April 26, 2017 17:54 - CONCLUSION: Negative noncontrast CT brain. Jeferson Thorne MD Objective Remarks GENERAL: This is a well-nourished, well-developed patient, in no apparent distress. SKIN: Warm and dry. HEENT: Normocephalic. Pupils equal round and reactive. Nose without bleeding. Airway patent. NECK: Trachea midline. No JVD. Supple. CARDIOVASCULAR: Regular rate and rhythm without murmurs, gallops, or rubs. RESPIRATORY: Clear to auscultation. Breath sounds equal bilaterally. No wheezes GASTROINTESTINAL: Abdomen soft, non-tender, nondistended. Bowel Sounds normoactive x4. MUSCULOSKELETAL: Extremities without edema. NEUROLOGICAL: Awake and alert. Diplopia present. frustrated. Moves all extremities. Normal speech. A/P Problem List: (1) Diplopia ICD Code: H53.2 Status: Acute (2) Accelerated hypertension ICD Code: I10 Status: Acute (3) DM (diabetes mellitus) ICD Code: E11.9 Status: Chronic Assessment and Plan Patient is a 57-year-old female with a known history of hypertension who had 2 weeks of increasing headache and increased blood pressure. Acute lacunar infarct patient involving the left cerebral peduncle presenting with diplopia - CT scan did not indicate acute abnormality - MRI of the brain showed small acute lacunar infarct - MRA of the neck and brain did not indicate any acute abnormality - Echocardiogram or thickness is normal, left ventricular systolic function is normal with EF 55-60% - PT recommends either outpatient physical therapy or home health PT. Walker provided. - Speech therapy recommendation regular diet, thin liquids, patient will not require speech therapy after discharge - Pending OT recommended eye patch for the diplopia. Will refer to policy writer typist as an outpatient - Neurology has evaluated patient and recommended addition of Plavix. Follow up as an outpatient. - Continue aspirin/Plavix - Discussed with her the MRI finding of her having a stroke. Notified her of her laboratory studies and plans for continued treatment. - Discuss extensively with patient and daughter regarding treatment plan including continued use of aspirin and Plavix as well as BP management. Reiterated all the plans and reassured patient that the ongoing treatment will continue as an outpatient. She needs to follow-up with Dr. Christensen, who have seen her although she denies she was seen. Patient is angry and states that she will not follow up with a neurologist instead she will follow up with all her doctors. She will also need referral for ophthalmology for the diplopia. Otherwise all treatment and therapy should continue at home. Plan for discharge discussed with patient and daughter. Agrees to be discharged. Hyperlipidemia - LDL 81 - Patient already on atorvastatin 40 mg in outpatient setting, increased to 80 mg Hypertension, was permissive due to stroke - Metoprolol 25 mg twice daily - Cozaar 100 mg daily - Add Norvasc 5mg daily for better control - Discuss importance of BP control Diabetes - Accu-Cheks with sliding scale insulin DVT prevention - Sequential compression devices Full code Discussed Plan for DC with patient, daughter, nursing This note was transcribed by vianney Avina. I, Dr. Chely Dhaliwal personally performed the history, physical exam, and medical decision making; and confirmed the accuracy of the information in the transcribed note. Authenticated by Dr. Chely Dhaliwal on 04/29/17 at 11:06 Discharge Planning Plan to discharge home today with PT and OT home care. Referral to policy writer typist. Reiterated BP management, aspirin Plavix use, statin use, blood sugar management. Follow-up with PCP, neurology, ophthalmology. Oumou Lobato Apr 29, 2017 11:22 Chely Dhaliwal MD Apr 29, 2017 12:05
--- NOTE | 2017-04-29 11:30 | HHI.DS ---
Discharge Summary Admission Date Apr 28, 2017 at 12:54 Discharge Date: Apr 29, 2017 Admitting Diagnosis Diplopia, accelerated hypertension (1) Diplopia ICD Code: H53.2 Diagnosis: Principal (2) Accelerated hypertension ICD Code: I10 Diagnosis: Principal (3) DM (diabetes mellitus) ICD Code: E11.9 Diagnosis: Principal (4) CVA (cerebrovascular accident) ICD Code: I63.9 Diagnosis: Principal Procedures None Brief History - From Admission Patient is a 57-year-old female with a known history of hypertension who had 2 weeks of increasing headache and increased blood pressure. Suddenly on the day of admission she had new onset of diplopia. She was dizzy. The patient says that she felt her eye was hurting and not able to rotate normally. She has reports normal vision for her but to inability to focus due to the double vision. There is no trauma. Patient was admitted through the emergency room for further evaluation and initial CT on my review is unremarkable. She takes her medications for diabetes and hypertension without difficulty. Initial EKG was unremarkable on my review. Patient admitted for further evaluation for possible CVA CBC/BMP: 04/27/17 0435 04/27/17 0435 Significant Findings Laboratory Tests Test 04/26/17 04/27/17 17:47 04:35 Chloride Level 110 MEQ/L 112 MEQ/L (98-107) (98-107) Creatinine 0.44 MG/DL 0.39 MG/DL (0.50-1.00) (0.50-1.00) Random Glucose 149 MG/DL 204 MG/DL (74-106) (74-106) Albumin 2.7 GM/DL 2.4 GM/DL (3.4-5.0) (3.4-5.0) Mean Platelet Volume 11.7 FL (7.0-11.0) Calcium Level 8.2 MG/DL (8.5-10.1) Aspartate Amino Transf 14 U/L (15-37) (AST/SGOT) Total Protein 5.7 GM/DL (6.4-8.2) Triglycerides Level 202 MG/DL (42-150) HDL Cholesterol 38.0 MG/DL (40.0-60.0) Imaging Last Impressions Neck Magnetic Resonance Angiography 04/27/17 0000 Signed Impressions: Service Date/Time: Thursday, April 27, 2017 15:05 - CONCLUSION: 1. Patent carotid arteries and vertebral arteries bilaterally. Jeferson Finn Jr., MD Head Magnetic Resonance Angiography 04/27/17 0000 Signed Impressions: Service Date/Time: Thursday, April 27, 2017 15:05 - CONCLUSION: Normal examination. Jeferson Finn Jr., MD Brain MRI 04/27/17 0000 Signed Impressions: Service Date/Time: Thursday, April 27, 2017 15:05 - CONCLUSION: 1. Small acute lacunar infarction involving the left cerebral peduncle. 2. Chronic small vessel ischemic change. Jeferson Finn Jr., MD Head CT 04/26/17 1730 Signed Impressions: Service Date/Time: Wednesday, April 26, 2017 17:54 - CONCLUSION: Negative noncontrast CT brain. Jeferson Thorne MD PE at Discharge GENERAL: This is a well-nourished, well-developed patient, in no apparent distress. SKIN: Warm and dry. HEENT: Normocephalic. Pupils equal round and reactive. Nose without bleeding. Airway patent. NECK: Trachea midline. No JVD. Supple. CARDIOVASCULAR: Regular rate and rhythm without murmurs, gallops, or rubs. RESPIRATORY: Clear to auscultation. Breath sounds equal bilaterally. No wheezes , rales, or rhonchi. GASTROINTESTINAL: Abdomen soft, non-tender, nondistended. Bowel Sounds normoactive x4. MUSCULOSKELETAL: Extremities without clubbing, cyanosis, or edema. NEUROLOGICAL: Awake and alert. Diplopia present. Angry. Moves all extremities. Normal speech. Pt update on day of discharge Patient seen and examined today. Daughter at the bedside. Discuss and explained with patient plans and further recommendations with her recent infarct. Discuss home health care versus outpatient rehabilitation. Patient is concerned that nobody has seen her or explained to her plan of action. Explained and discussed with patient and daughter that medical team has gone over results and recs w patient yesterday, discussed the need for Plavix and aspirin use to be continued as well as to continue PT, ST, OT recommendations. Patient continues to worry about her diplopia, complains of continuous diplopia and visual problems and when she is going to get better. Reassured patient and discussed that being back to her functional status will be depending on individual patient. She will need to continue with PT and OT. Patient states that she has all been arranged by her company but when approached if she needed a referral she states that she would need a referral. Awaiting for OT recommendation. Denies pain and discomfort. Denies SOB/ dyspnea. Denies chest pain, palpitations, headaches, dizziness. Denies fevers, chills, n/v/d. Denies dysuria. Hospital Course Patient is a 57-year-old female with a known history of hypertension who had 2 weeks of increasing headache and increased blood pressure. She was also complaining of diplopia. She was found to have small acute lacunar infarct with MRI. MRA of the neck and brain did not indicate any acute abnormality as well as CT scan did not indicate acute abnormality. Echocardiogram was performed with normal wall thickness left ventricular systolic function is normal with EF of 55-60%. Patient was hypertensive and was started on medications including metoprolol 25 mg twice a day, Cozaar 100 mg daily, Norvasc 5 mg added for better BP control. Discuss importance of BP controls especially with lacunar infarct. Patient was atorvastatin was also increased to 80 mg. Physical therapy has recommended home care versus outpatient PT. Walker was also provided. Occupational therapy saw patient and recommended eye patch to augment diplopia. Will refer to outpatient laborer shaft sinking for further evaluation and treatment. Speech therapy recommended regular, thin liquid diet without any follow-up as an outpatient. Discuss extensively with patient and daughter regarding treatment plan including continued use of aspirin and Plavix as well as BP management. Reiterated all the plans and reassured patient that the ongoing treatment will continue as an outpatient. She needs to follow-up with Dr. Christensen, who have seen her although she denies she was seen. Patient is angry and states that she will not follow up with neurology instead she will follow up with all her doctors. She will also need outpatient referral for ophthalmology for the diplopia. Otherwise all treatment and therapy should continue at home. Plan for discharge discussed with patient and daughter. Agrees to be discharged. Pt Condition on Discharge: Stable Discharge Disposition: Disch w/ Home Health Serv Discharge Time: > 30 minutes Discharge Instructions DIET: Follow Instructions for: Heart Healthy Diet, Diabetic Diet Speech Therapy-Diet Recommends: Regular Activities you can perform: See Additionl Instruction Activities to Avoid: Driving Follow up Referrals: Neurology - 2 Weeks with Yonathan Christensen MD Ophthalmology - 2 Weeks PCP Follow-up - 1 Week New Medications: Walker with Front Wheels (Walker with Front Wheels) 1 Mis Mis 1 EA .ROUTE DIRECTED #1 Ref 0 EA Additional Information Written by Oumou Avina, acting as scribe for Dr. Dhaliwal on 04/29/17 at 11:29. This note was transcribed by violetteibrobyn Avina. I, Dr. Chely Dhaliwal personally performed the history, physical exam, and medical decision making; and confirmed the accuracy of the information in the transcribed note. Authenticated by Dr. Chely Dhaliwal on 04/29/17 at 11:29. Oumou Lobato Apr 29, 2017 11:30 Chely Dhaliwal MD Apr 29, 2017 11:59
--- NOTE | 2017-04-29 11:56 | HHI.FF ---
Face to Face Verification Diagnosis: (1) Diplopia (2) CVA (cerebrovascular accident) Physical Therapy Order: Evaluate and Treat Occupational Therapy Order: Evaluate and Treat I have seen patient Renata Ferro on 04/29/17. My clinical findings support the need for the requested home health care services because: Pt s/p CVA w diplopia requiring use of walker Deconditioned w/ increased weakness High risk of falls I certify that my clinical findings support that this patient is homebound because:Pt s/p CVA w diplopia requiring use of walker Unsteady gait/balance Chely Dhaliwal MD Apr 29, 2017 11:56
[2017-04-29] MEDS ORDERED: ATOR40TA16 PO (12:00)
[2017-04-29] MEDS ORDERED: AMLO5 PO (12:00)
[2017-04-29] MEDS ORDERED: PLAV75TA29 PO (12:00)
[2017-04-29 12:30] VITALS: BP 176/79; PULSE 57; RESP 19; TEMP 97.7; O2SAT 95
[2017-04-29] MEDS ORDERED: ATORVASTATIN 80 MG TAB PO SCH (21:00)
[2017-04-29] MEDS ORDERED: ATORVASTATIN 40 MG TAB PO SCH (21:00)
== END 2017-04-29 12:48 | disposition home health service (06) | DRG 66 ==
LOC: PHED 17:13 → PHEDA 18:49 → PH3A 21:17 → OBSVTOIN 04-28 12:54
PROVIDERS: ADMIT Hospitalist; ATTEND Hospitalist
DX: I63.9 Cerebral infarction, unspecified (principal); I10 Essential (primary) hypertension; H53.2 Diplopia; E11.9 Type 2 diabetes mellitus without complications; E78.5 Hyperlipidemia, unspecified; I25.10 Atherosclerotic heart disease of native coronary artery without angina pectoris; Z79.02 Long term (current) use of antithrombotics/antiplatelets; Z79.899 Other long term (current) drug therapy; Z85.528 Personal history of other malignant neoplasm of kidney; Z95.5 Presence of coronary angioplasty implant and graft; Z79.82 Long term (current) use of aspirin; F17.210 Nicotine dependence, cigarettes, uncomplicated; F41.9 Anxiety disorder, unspecified
CPT/HCPCS: 70450; 70544; 70548; 70551; 80053; 80061; 82948; 85025; 85610; 85730; 93005; 93306; 96361; 96372; 96374; 96375; A9579; G0378; J0360; J1815; J2060; J7030